=== PATIENT | female | born 2000 | race Caucasian/White ===

== ENCOUNTER → 2022-05-31 | Outpatient (CLI) | payer OTHER | LOC: M RAD 13:40 | PROVIDERS: ATTEND Obstetrics & Gynecology | DX: Z36.88 Encounter for antenatal screening for fetal macrosomia (principal); Z3A.34 34 weeks gestation of pregnancy ==

== ENCOUNTER 2022-07-09 09:59 | Outpatient (CLI) | payer OTHER ==
[~2022-07-09] VITALS: Ht 154.9 cm; Wt 107.5 kg
[2022-07-09] MEDS ORDERED: TUMS500C PO (10:25)
[2022-07-09] MEDS ORDERED: ACET500P3 PO (10:25)
[2022-07-09 10:29] VITALS: BP 134/72
[2022-07-09 11:14] VITALS: BP 129/71
[2022-07-09 12:21] VITALS: BP 126/73
== END 2022-07-09 12:37 | disposition home or self-care (01) ==
LOC: M LDO 09:59
PROVIDERS: ATTEND Advanced Practice Midwife
DX: O47.1 False labor at or after 37 completed weeks of gestation (principal); Z3A.39 39 weeks gestation of pregnancy; O34.219 Maternal care for unspecified type scar from previous cesarean delivery
CPT/HCPCS: 59025; 76815; G0463